=== PATIENT | female | born 1965 | race Caucasian/White ===

== ENCOUNTER 2018-04-10 10:37 | Emergency (ER) | payer OTHER ==
--- NOTE | 2018-04-10 11:34 | ED ---
General Adult HPI - General Chief complaint: Vaginal Bleeding Stated complaint: Bleeding Time Seen by Provider: 04/10/18 11:06 Source: patient, EMS, RN notes reviewed Mode of arrival: EMS Limitations: no limitations - History of Present Illness Initial comments: 52-year-old female presenting with vaginal bleeding. Patient transferred from [facility] with anemia and vaginal bleeding. Patient states she has irregular. Cycling once monthly. She has had persistent bleeding since the onset of her last menstrual. Which began on March 22. She's had 19 days of intermittent bleeding. She states his been heavy at times. She was found to have a hemoglobin of 6.7 and transferred for transfusion and [employer] consultation. Patient denies pain. Denies dyspnea. Denies chest pain. She has some mild lightheadedness. - Related Data Home Medications Medication Instructions Recorded Confirmed Ibuprofen [Motrin Ib] 400 mg PO Q6H PRN 04/10/18 04/10/18 Previous Rx's Medication Instructions Recorded Medroxyprogesterone Acetate 10 mg PO DAILY #9 tab 04/10/18 [Provera] Allergies Allergy/AdvReac Type Severity Reaction Status Date / Time No Known Allergies Allergy Verified 04/10/18 11:14 Review of Systems ROS Statement: Those systems with pertinent positive or pertinent negative responses have been documented in the HPI. ROS Other: All systems not noted in ROS Statement are negative. Past Medical History Past Medical History: No Reported History History of Any Multi-Drug Resistant Organisms: None Reported Past Surgical History: Cholecystectomy Past Psychological History: No Psychological Hx Reported Smoking Status: Never smoker Past Alcohol Use History: None Reported Past Drug Use History: None Reported General Exam Limitations: no limitations General appearance: alert, in no apparent distress Head exam: Present: atraumatic, normocephalic Eye exam: Present: normal appearance, PERRL ENT exam: Present: normal exam Neck exam: Present: normal inspection. Absent: tenderness, meningismus Respiratory exam: Present: normal lung sounds bilaterally. Absent: respiratory distress, wheezes Cardiovascular Exam: Present: normal rhythm, tachycardia GI/Abdominal exam: Present: soft. Absent: distended, tenderness, guarding External exam: Present: normal external exam Speculum exam: Present: vaginal bleeding, other (Cervix partially visualized) By manual exam: Present: cervical motion tenderness, uterine enlargement. Absent: adnexal tenderness, adnexal mass Extremities exam: Present: normal inspection, normal capillary refill. Absent: pedal edema Neurological exam: Present: alert, oriented X3, CN II-XII intact. Absent: motor sensory deficit Psychiatric exam: Present: normal affect, normal mood Skin exam: Present: warm, dry, pallor Course Vital Signs 04/10/18 04/10/18 04/10/18 10:45 13:31 13:41 Temperature 97.8 F 97.5 F L 98.2 F Pulse Rate 97 104 H 91 Respiratory 18 18 16 Rate Blood Pressure 138/81 121/69 117/71 O2 Sat by Pulse 98 100 99 Oximetry 04/10/18 04/10/18 04/10/18 14:11 14:41 15:11 Temperature 97.7 F 97.8 F 97.9 F Pulse Rate 96 93 88 Respiratory 18 18 16 Rate Blood Pressure 113/64 116/74 110/77 O2 Sat by Pulse 99 98 99 Oximetry - Reevaluation(s) Reevaluation #1: 04/10/18 11:33 Ultrasound results from [facility], fibroid uterus left ovarian cystic focus, endometrial stripe is 1.5 cm Medical Decision Making - Medical Decision Making Patient transferred with vaginal bleeding and symptomatic anemia. Hemoglobin in the Emergency department, at 6.7. Patient does have some minimal persistent vaginal bleeding, ultrasound report obtained at [facility] showed thickened endometrium 1.5 cm and uterine fibroids. Patient will be transfused 1 unit packed red blood cells. Patient is hemodynamically stable. Did discuss the case with Dr. Torres, recommends Provera 10 mg for 10 days. First dose given in the emergency department. She was also transfused 1 unit of packed RBCs. She remains hemodynamically stable. There is minimal active hemorrhage on pelvic exam. Patient will take Provera daily for 10 days. Will follow-up with Dr. Torres, return with worsening bleeding, lightheadedness, dyspnea. - Lab Data Result diagrams: 04/10/18 11:26 04/10/18 11:26 Lab Results 04/10/18 04/10/18 04/10/18 Range/Units 11:26 11:26 11:26 WBC 8.9 (3.8-10.6) k/uL RBC 3.87 (3.80-5.40) m/uL Hgb 6.7 L* (11.4-16.0) gm/dL Hct 23.2 L (34.0-46.0) % MCV 59.9 L (80.0-100.0) fL MCH 17.5 L (25.0-35.0) pg MCHC 29.1 L (31.0-37.0) g/dL RDW 17.9 H (11.5-15.5) % Plt Count 457 H (150-450) k/uL Neutrophils % 77 % Lymphocytes % 15 % Monocytes % 5 % Eosinophils % 1 % Basophils % 0 % Neutrophils # 6.9 (1.3-7.7) k/uL Lymphocytes # 1.3 (1.0-4.8) k/uL Monocytes # 0.4 (0-1.0) k/uL Eosinophils # 0.1 (0-0.7) k/uL Basophils # 0.0 (0-0.2) k/uL Hypochromasia Marked Poikilocytosis Slight Anisocytosis Slight Microcytosis Marked PT (9.0-12.0) sec INR (<1.2) APTT (22.0-30.0) sec Sodium 139 (137-145) mmol/L Potassium 4.2 (3.5-5.1) mmol/L Chloride 110 H (98-107) mmol/L Carbon Dioxide 23 (22-30) mmol/L Anion Gap 6 mmol/L BUN 10 (7-17) mg/dL Creatinine 0.49 L (0.52-1.04) mg/dL Est GFR (CKD-EPI)AfAm >90 (>60 ml/min/1.73 sqM) Est GFR (CKD-EPI)NonAf >90 (>60 ml/min/1.73 sqM) Glucose 105 H (74-99) mg/dL Calcium 8.4 (8.4-10.2) mg/dL Total Bilirubin 0.3 (0.2-1.3) mg/dL AST 16 (14-36) U/L ALT 28 (9-52) U/L Alkaline Phosphatase 51 (38-126) U/L Total Protein 6.9 (6.3-8.2) g/dL Albumin 3.6 (3.5-5.0) g/dL Blood Type A Positive Blood Type Confirm Blood Type Recheck CABO Indicated Antibody Screen NEGATIVE Crossmatch See Detail Spec Expiration Date 04/13/2018232504/10/18 04/10/18 Range/Units 11:26 11:30 WBC (3.8-10.6) k/uL RBC (3.80-5.40) m/uL Hgb (11.4-16.0) gm/dL Hct (34.0-46.0) % MCV (80.0-100.0) fL MCH (25.0-35.0) pg MCHC (31.0-37.0) g/dL RDW (11.5-15.5) % Plt Count (150-450) k/uL Neutrophils % % Lymphocytes % % Monocytes % % Eosinophils % % Basophils % % Neutrophils # (1.3-7.7) k/uL Lymphocytes # (1.0-4.8) k/uL Monocytes # (0-1.0) k/uL Eosinophils # (0-0.7) k/uL Basophils # (0-0.2) k/uL Hypochromasia Poikilocytosis Anisocytosis Microcytosis PT 10.4 (9.0-12.0) sec INR 1.0 (<1.2) APTT 21.5 L (22.0-30.0) sec Sodium (137-145) mmol/L Potassium (3.5-5.1) mmol/L Chloride (98-107) mmol/L Carbon Dioxide (22-30) mmol/L Anion Gap mmol/L BUN (7-17) mg/dL Creatinine (0.52-1.04) mg/dL Est GFR (CKD-EPI)AfAm (>60 ml/min/1.73 sqM) Est GFR (CKD-EPI)NonAf (>60 ml/min/1.73 sqM) Glucose (74-99) mg/dL Calcium (8.4-10.2) mg/dL Total Bilirubin (0.2-1.3) mg/dL AST (14-36) U/L ALT (9-52) U/L Alkaline Phosphatase (38-126) U/L Total Protein (6.3-8.2) g/dL Albumin (3.5-5.0) g/dL Blood Type Blood Type Confirm A Positive Blood Type Recheck Antibody Screen Crossmatch Spec Expiration Date Disposition Clinical Impression: Fibroids, Symptomatic anemia, Dysfunctional uterine bleeding Disposition: HOME SELF-CARE Condition: Good Instructions (If sedation given, give patient instructions): Dysfunctional Uterine Bleeding (ED) Prescriptions: Medroxyprogesterone Acetate [Provera] 10 mg PO DAILY #9 tab Is patient prescribed a controlled substance at d/c from ED?: No Referrals: None,Stated [Primary Care Provider] - 1-2 days Belinda Torres DO [Doctor of Osteopathic Medicine] - 1-2 days Time of Disposition: 12:56
[2018-04-10 12:18] LABS: Anisocytosis Slight; Basophils % (A) 0 %; Eosinophils # (A) 0.1 k/uL (0-0.7); Eosinophils % (A) 1 %; HCT 23.2 % (34.0-46.0); Hypochromasia Marked; Lymphocytes # (A) 1.3 k/uL (1.0-4.8); Lymphocytes % (A) 15 %; MCH 17.5 pg (25.0-35.0); MCHC 29.1 g/dL (31.0-37.0); MCV 59.9 fL (80.0-100.0); Microcytosis Marked; Monocytes # (A) 0.4 k/uL (0-1.0); Monocytes % (A) 5 %; Neutrophils # (A) 6.9 k/uL (1.3-7.7); Neutrophils % (A) 77 %; Platelet Count 457 k/uL (150-450); Poikilocytosis Slight; RBC 3.87 m/uL (3.80-5.40); RDW 17.9 % (11.5-15.5); WBC 8.9 k/uL (3.8-10.6)
[2018-04-10 12:24] LABS: HGB 6.7 gm/dL (11.4-16.0)
[2018-04-10 12:26] LABS: Prothrombin Time 10.4 sec (9.0-12.0)
[2018-04-10 12:32] LABS: Partial Thromboplastin Time 21.5 sec (22.0-30.0)
[2018-04-10 12:51] LABS: ALT 28 U/L (9-52); AST 16 U/L (14-36); Albumin 3.6 g/dL (3.5-5.0); Alkaline Phosphatase 51 U/L (38-126); Anion Gap 6 mmol/L; Blood Urea Nitrogen 10 mg/dL (7-17); Calcium 8.4 mg/dL (8.4-10.2); Carbon Dioxide 23 mmol/L (22-30); Chloride 110 mmol/L (98-107); Glucose 105 mg/dL (74-99); Potassium 4.2 mmol/L (3.5-5.1); Sodium 139 mmol/L (137-145); Total Bilirubin 0.3 mg/dL (0.2-1.3); Total Protein 6.9 g/dL (6.3-8.2)
[2018-04-10 17:07] VITALS: BP 125/65; PULSE 89; RESP 16
[2018-04-10 17:14] VITALS: TEMP 98
== END 2018-04-10 17:19 | disposition home or self-care (01) ==
LOC: EC 10:37
DX: D25.9 Leiomyoma of uterus, unspecified (principal); D64.9 Anemia, unspecified; R00.0 Tachycardia, unspecified; R42 Dizziness and giddiness
CPT/HCPCS: 36415; 86900; 86901; 80053; 85025; 85610; 85730; 86850; 86920; 99284; P9016

== ENCOUNTER → 2018-04-30 | Outpatient (CLI) | payer SELFPAY ==
--- NOTE | 2018-04-30 12:37 | US ---
EXAMINATION TYPE: US pelvis complete transvag DATE OF EXAM: 04/30/2018 COMPARISON: NONE CLINICAL HISTORY: 52-year-old female N92.0 menorrhagia, N83.0 ovarian cyst. Heavy and frequent bleedi ng. TECHNIQUE: Transabdominal sonographic images of the pelvis were acquired. Transvaginal sonographic images were medically necessary to better assess the following anatomy: Uterus Date of LMP: 03/20/2018 FINDINGS: Aircraft Quality Control Inspector notes: Difficult and limited exam due to large and bulky uterus EXAM MEASUREMENTS: Uterus: 13.8 x 7.4 x 9.5 cm Endometrial Stripe: 1.7 cm Right Ovary: Not visualized Left Ovary: Not visualized 1. Uterus: Anteverted Large and bulky. Difficult to penetrate due to fibroid change. Probable fibr oid visualized measuring 8.4 x 7.2 x 6.5 cm 2. EndometAppears thickened, difficult to visualize ualize 3. Right OObscured by overlying bowel gaswel gas 4. Left OObscured by overlying bowel gaswel gas 5. Bilateral Adwnl as visualized alized 6. Posterior cul-dewnlc: nl IMPRE ON: 1. Large and bulky fibroid uterus. Very difficult assessment due to the attenuation from the fibroid change. If fibroid mapping is desired, consider female pelvic MRI. One of the fibroids is suspected t o measure up to 8.4 cm. 2. Endometrial stripe thickened at 1.7 cm. This should correspond to the late secretory phase of the menstrual cycle. 3. Neither ovary could be visualized.
== END ==
LOC: RADUSWWP 09:00
PROVIDERS: ATTEND Obstetrics & Gynecology
DX: D25.9 Leiomyoma of uterus, unspecified (principal); N85.8 Other specified noninflammatory disorders of uterus
CPT/HCPCS: 76830; 76856

== ENCOUNTER → 2018-05-17 | Outpatient (CLI) | payer SELFPAY ==
[2018-05-17 14:01] LABS: Anisocytosis Moderate; Basophils # (A) 0.1 k/uL (0-0.2); Basophils % (A) 1 %; Eosinophils # (A) 0.1 k/uL (0-0.7); Eosinophils % (A) 1 %; HCT 29.7 % (34.0-46.0); HGB 8.1 gm/dL (11.4-16.0); Hypochromasia Marked; Lymphocytes # (A) 1.7 k/uL (1.0-4.8); Lymphocytes % (A) 18 %; MCH 17.6 pg (25.0-35.0); MCHC 27.1 g/dL (31.0-37.0); MCV 64.7 fL (80.0-100.0); Mean Platelet Volume 7.7; Microcytosis Marked; Monocytes # (A) 0.5 k/uL (0-1.0); Monocytes % (A) 5 %; Neutrophils # (A) 7.1 k/uL (1.3-7.7); Neutrophils % (A) 73 %; Platelet Count 352 k/uL (150-450); Poikilocytosis Slight; RBC 4.59 m/uL (3.80-5.40); RDW 20.5 % (11.5-15.5); WBC 9.6 k/uL (3.8-10.6)
== END | disposition home or self-care (01) ==
LOC: LABPAT 13:24
PROVIDERS: ATTEND Obstetrics & Gynecology
DX: Z01.818 Encounter for other preprocedural examination (principal)
CPT/HCPCS: 36415; 85025; 93005

== ENCOUNTER → 2018-05-21 | Outpatient (CLI) | payer SELFPAY ==
[2018-05-21 14:29] LABS: Anisocytosis Moderate; Basophils # (A) 0.1 k/uL (0-0.2); Basophils % (A) 1 %; Eosinophils # (A) 0.1 k/uL (0-0.7); Eosinophils % (A) 1 %; HCT 30.4 % (34.0-46.0); HGB 8.2 gm/dL (11.4-16.0); Hypochromasia Marked; Lymphocytes # (A) 1.4 k/uL (1.0-4.8); Lymphocytes % (A) 15 %; MCH 17.9 pg (25.0-35.0); MCHC 26.9 g/dL (31.0-37.0); MCV 66.7 fL (80.0-100.0); Mean Platelet Volume 6.9; Microcytosis Marked; Monocytes # (A) 0.5 k/uL (0-1.0); Monocytes % (A) 5 %; Neutrophils # (A) 7.2 k/uL (1.3-7.7); Neutrophils % (A) 76 %; Platelet Count 319 k/uL (150-450); Poikilocytosis Slight; RBC 4.55 m/uL (3.80-5.40); RDW 20.2 % (11.5-15.5); WBC 9.6 k/uL (3.8-10.6)
== END | disposition home or self-care (01) ==
LOC: LABPAT 13:46
PROVIDERS: ATTEND Obstetrics & Gynecology
DX: Z01.812 Encounter for preprocedural laboratory examination (principal)
CPT/HCPCS: 85025

== ENCOUNTER → 2018-05-22 | Day surgery (SDC) | payer SELFPAY ==
[2018-05-16 14:39] VITALS: BMI 35.0
--- NOTE | 2018-05-21 19:38 | P.HPOB ---
History of Present Illness H&P Date: 05/21/18 Chief Complaint: Menorrhagia with regular cycle, endometrial thickening, anemia This is a 52-year-old female 0 who presents for dilation and curettage with hysteroscopy secondary to menorrhagia with irregular cycle, endometrial thickening, and anemia. She states she was having regular menses up until February. Then her period in March lasted 19 days and she went to [facility] for treatment. She was transferred to [facility] and was given some blood. She was also started on Provera. She took the Provera for 10 days and was still spotting at the end of the. She took a second course of Provera and did stop bleeding for almost 2 weeks but did begin to start spotting again after that. During this period of time she did have some large clots which she usually does not get. A pelvic ultrasound was performed that showed her uterus measuring 13.8 x 7.4 x 9.5 cm with endometrial stripe thickness of 1.7 cm. The uterus appeared large and bulky with fibroid change and a probable fibroid measuring 8.4 cm was noted. Neither ovary was completely visualized. Patient is aware that she will most likely need a hysterectomy due to her large uterus and heavy bleeding, but she understands she does need a uterine sampling to rule out any endometrial cancer first. Obstetrical history: G0. Gynecologic history: No history of sexually transmitted diseases. Menses have previously been monthly and lasting 4 days with some small clots normally. Social history: She is . She works as a caregiver for her . Review of Systems Constitutional: Denies chills, Denies fever Eyes: denies blurred vision, denies pain Ears, nose, mouth and throat: Denies headache, Denies sore throat Cardiovascular: Denies chest pain, Denies shortness of breath Respiratory: Denies cough Gastrointestinal: Reports abdominal pain Genitourinary: Reports abnormal vaginal bleeding, Reports menorrhagia Menstruation: Reports period heavy Musculoskeletal: Denies myalgias Integumentary: Denies pruritus, Denies rash Neurological: Denies numbness, Denies weakness Psychiatric: Denies anxiety, Denies depression Past Medical History Additional Past Medical History / Comment(s): Anemia. Bleeding since 2018. History of Any Multi-Drug Resistant Organisms: None Reported Past Surgical History: Cholecystectomy Past Anesthesia/Blood Transfusion Reactions: No Reported Reaction Smoking Status: Never smoker Past Alcohol Use History: None Reported Past Drug Use History: None Reported - Past Family History Mother Family Medical History: No Reported History Father Family Medical History: Cancer Additional Family Medical History / Comment(s): Throat cancer Medications and Allergies Home Medications Medication Instructions Recorded Confirmed Type Ibuprofen [Motrin Ib] 400 mg PO Q6H PRN 04/10/18 05/16/18 History Medroxyprogesterone Acetate 10 mg PO DAILY #9 tab 04/10/18 05/16/18 Rx [Provera] Iron Ps Complex/B12/Folic Acid 1 each PO DAILY 05/16/18 05/16/18 History [Myferon-150 Forte Capsule] Allergies Allergy/AdvReac Type Severity Reaction Status Date / Time No Known Allergies Allergy Verified 05/16/18 14:04 Exam Osteopathic Statement: *. No significant issues noted on an osteopathic structural exam other than those noted in the History and Physical/Consult. HEENT: Within normal limits Heart: Regular rate and rhythm Lungs: Clear to auscultation bilaterally Abdomen: Soft, nontender. Pelvic exam: Cervix is nulliparous with no lesions noted, bloody discharge is noted. Uterus is bulky and nodular and enlarged to about 18 weeks' size, with no adnexal masses or tenderness noted. Extremities: Negative Homans Assessment and Plan (1) Menorrhagia with irregular cycle Status: Acute Code(s): N92.1 - EXCESSIVE AND FREQUENT MENSTRUATION WITH IRREGULAR CYCLE SNOMED Code(s): 851406843 (2) Endometrial thickening on ultrasound Status: Acute Code(s): R93.89 - ABNORMAL FINDINGS ON DX IMAGING OF OTH BODY STRUCTURES SNOMED Code(s): 405177999 (3) Anemia, blood loss Status: Acute Code(s): D50.0 - IRON DEFICIENCY ANEMIA SECONDARY TO BLOOD LOSS (CHRONIC) SNOMED Code(s): 788294512 Plan: Proceed with dilation and curettage with hysteroscopy. I have discussed the risks, benefits, and alternative therapies for the above- mentioned procedure and for both sedation/anesthesia as well as necessary blood products administration, if indicated, as they pertain to this patient. The patient has indicated her understanding and acceptance of the risks and procedures discussed.
[~2018-05-22] MED LIST: DEXAMETHASONE SOD PHOSPHATE 10 MG/ML 1 ML VIAL IV ONE; HYDROmorphone 0.5 MG/0.5 ML SYRINGE IVP PRN; KETOROLAC 30 MG/ML 1 ML VIAL ONE; LACTATED RINGERS 1,000 ML IV SCH; LIDOCAINE 1% 20 ML VIAL (10MG/ML) FOR IV START INTRADERMA ONE; LIDOCAINE 1% INJ 10MG/ML (20 ML MDV) ONE; MIDAZOLAM 2 MG/2 ML VIAL ONE; ONDANSETRON 4 MG/2 ML VIAL IVP ONE; PROPOFOL 10 MG/ML 20 ML VIAL IV ONE; Pre Op ABX Message 1 EACH MISC MISCELLANE ONE; fentaNYL (PF) 50 MCG/ML 2 ML AMP ONE
--- NOTE | 2018-05-22 07:58 | P.OP ---
Date of Procedure: 05/22/18 Preoperative Diagnosis: Menorrhagia with irregular cycle Endometrial thickening Blood loss anemia Postoperative Diagnosis: Same Procedure(s) Performed: Dilation and curettage with hysteroscopy Anesthesia: other (LMA general) Surgeon: Belinda Torres Estimated Blood Loss (ml): 10 Pathology: other (Endometrial curettings) Condition: stable Disposition: same day Indications for Procedure: This is a 52-year-old female 0 who presents for dilation and curettage with hysteroscopy secondary to menorrhagia with irregular cycle, endometrial thickening, and anemia. She states she was having regular menses up until February. Then her period in March lasted 19 days and she went to [facility] for treatment. She was transferred to [facility] and was given some blood. She was also started on Provera. She took the Provera for 10 days and was still spotting at the end of the. She took a second course of Provera and did stop bleeding for almost 2 weeks but did begin to start spotting again after that. During this period of time she did have some large clots which she usually does not get. A pelvic ultrasound was performed that showed her uterus measuring 13.8 x 7.4 x 9.5 cm with endometrial stripe thickness of 1.7 cm. The uterus appeared large and bulky with fibroid change and a probable fibroid measuring 8.4 cm was noted. Neither ovary was completely visualized. Patient is aware that she will most likely need a hysterectomy due to her large uterus and heavy bleeding, but she understands she does need a uterine sampling to rule out any endometrial cancer first. Operative Findings: Uterus is palpated to be very enlarged at approximately 18 weeks size and bulky with nodularity consistent with fibroids. Neither ovary is palpated. Her cervix is noted to be stenotic. Uterus is sounded to 16 cm. Upon hysteroscopy, all all means the left tubal ostia is visualized. I do not see anything that appears to be the right side of the uterus and therefore I'm not sure if she has a unicornuate uterus versus a septate uterus however I am unable to visualize the right side at all. Upon curetting, she does have a very firm feel to the uterus consistent with fibroid changes. A minimal to moderate amount of endo metrial curettings are obtained. Description of Procedure: The patient is taken to the operating room where she is placed in the dorsal lithotomy position. She is prepped and draped in the normal sterile fashion. Her bladder is drained with a catheter. Examination is performed under anesthesia. Her uterus is found to be very bulky and nodular palpating up to 18 week size. No specific adnexal masses are palpated however the uterus is very bulky in width also. Next a weighted speculum was placed in the patient's vagina and a right angle retractor was used to visualize the cervix. The anterior lip of the cervix is grasped with a single-tooth tenaculum. Her cervix os is noted to be stenotic. It is gently opened with a hemostat followed by a small Ramirez dilator. Once the cervix is opened, the uterus is sounded to 16 cm. Cervix is gently dilated further until a hysteroscope could be passed. Hysteroscopy is performed using normal saline and the above noted findings are made. Pictures are taken. No visualization of the right side of the uterus was obtained. The hysteroscope was withdrawn and the cervix is gently dilated further. Next a polyp forceps was introduced with a minimal amount of tissue obtained. Next a medium-size sharp curet was introduced and sharp curettage was performed until a gritty texture was noted. A very irregular contour was noted consistent with probable submucosal fibroids. Next the tissue is sent to pathology. The single-tooth tenaculum is removed. No active bleeding is noted. Next a weighted speculum was removed. All sponge and needle counts are correct. The patient is then taken to recovery room in stable condition.
[2018-05-22 08:07] VITALS: RESP 16; TEMP 96.9
[2018-05-22 09:08] VITALS: BP 120/64; PULSE 87
== END | disposition home or self-care (01) ==
LOC: OR 06:30
PROVIDERS: ATTEND Obstetrics & Gynecology
DX: N92.0 Excessive and frequent menstruation with regular cycle (principal); D50.0 Iron deficiency anemia secondary to blood loss (chronic); N84.0 Polyp of corpus uteri; Z90.49 Acquired absence of other specified parts of digestive tract; Z79.1 Long term (current) use of non-steroidal anti-inflammatories (NSAID); Z79.899 Other long term (current) drug therapy
CPT/HCPCS: 81025; 86900; 86901; 88305; 86850; 58558; J2250; J1100; J2405; J2001; J3010; J1885; J2704

== ENCOUNTER → 2020-02-13 | Outpatient (CLI) | payer OTHER ==
--- NOTE | 2020-02-13 14:03 | MM ---
Reason for exam: screening (asymptomatic). Baseline mammogram. History: Patient is nulliparous. Took progesterone for 10 months beginning at age 53. Physical Findings: Nurse did not find any significant physical abnormalities on exam. MG Screening Mammo w CAD Bilateral CC and MLO view(s) were taken. There are scattered fibroglandular densities. There is no discrete abnormality. These results were verbally communicated with the patient and result sheet given to the patient on 02/13/20. ASSESSMENT: Negative, BI-RAD 1 RECOMMENDATION: Routine screening mammogram of both breasts in 1 year.
== END | disposition home or self-care (01) ==
LOC: RADMAMWWP 12:42
PROVIDERS: ATTEND Family Medicine
DX: Z12.31 Encounter for screening mammogram for malignant neoplasm of breast (principal)
CPT/HCPCS: 77067

== ENCOUNTER → 2021-06-18 | Outpatient (CLI) | payer OTHER ==
--- NOTE | 2021-06-21 13:47 | MM ---
Reason for exam: screening (asymptomatic). Last mammogram was performed 1 year and 4 months ago. History: Patient is nulliparous. Took progesterone for 10 months beginning at age 53. Physical Findings: A clinical breast exam by your physician is recommended on an annual basis and results should be correlated with mammographic findings. MG Screening Mammo w CAD Bilateral CC and MLO view(s) were taken. Prior study comparison: February 13, 2020, bilateral MG screening mammo w CAD. The breast tissue is almost entirely fat. No significant changes when compared with prior studies. ASSESSMENT: Negative, BI-RAD 1 RECOMMENDATION: Routine screening mammogram of both breasts in 1 year.
== END | disposition home or self-care (01) ==
LOC: RADMAMWWP 09:55
PROVIDERS: ATTEND Family Medicine
DX: Z12.31 Encounter for screening mammogram for malignant neoplasm of breast (principal)
CPT/HCPCS: 77067

== ENCOUNTER → 2022-08-02 | Outpatient (CLI) | payer OTHER ==
--- NOTE | 2022-08-03 12:24 | MM ---
Reason for Exam: Screening (asymptomatic). Last mammogram was performed 1 year(s) and 1 month(s) ago. Patient History: Menarche at age 14. Patient has no children. Hysterectomy at age 53. Progesterone for 10 months from age 53 until age 53. Risk Values: Renae 5 year model risk: 1.2%. NCI Lifetime model risk: 8.1%. Prior Study Comparison: 02/13/2020 Bilateral Screening Mammogram, [facility]. 06/18/2021 Bilateral Screening Mammogram, [facility]. Tissue Density: The breast tissue is almost entirely fat. Findings: Analyzed By CAD. There is no suspicious group of microcalcifications or new suspicious mass in either breast. Overall Assessment: Negative, BI-RAD 1 Management: Screening Mammogram of both breasts in 1 year. . Patient should continue monthly self-breast exams. A clinical breast exam by your physician is recommended on an annual basis. This exam should not preclude additional follow-up of suspicious palpable abnormalities. Note on Renae scores and lifetime risk: 1. A Renae score greater than 3% is considered moderate risk. If this is the case, consider specialist referral to assess eligibility for a risk reducing agent. 2. If overall lifetime risk for the development of breast cancer is 20% or higher, the patient may qualify for future screening with alternating mammogram and breast MRI. Electronically signed and approved by: Nick Russell M.D.
== END | disposition home or self-care (01) ==
LOC: RADMAMWWP 12:16
PROVIDERS: ATTEND Family Medicine
DX: Z12.31 Encounter for screening mammogram for malignant neoplasm of breast (principal); Z90.710 Acquired absence of both cervix and uterus
CPT/HCPCS: 77067